=== PATIENT | male | born 1960 | race Caucasian/White ===

== ENCOUNTER 2020-05-15 13:22 | Emergency (ER) | payer OTHER, SELFPAY ==
[2020-05-15 13:26] VITALS: BP 141/80; PULSE 85; RESP 17; TEMP 36.7; O2SAT 98
[2020-05-15] MEDS: TETANUS,DIPHTHERIA,AC PERTUSSIS ADULT (0.5 ML) BOOSTRIX IM (15:00)
--- NOTE | 2020-05-15 15:17 | ED.WOUNDLAC ---
HPI - Wound/Laceration General Chief Complaint: Wound/Laceration Stated Complaint: head lac Time Seen by Provider: 05/15/20 13:59 Source: patient Mode of arrival: ambulatory Limitations: no limitations History of Present Illness HPI narrative: This is a 59-year-old male that presents the emergency department for head injury today. Reports he was outside and was standing up and hit his head on the AC unit. Reports a laceration to the head. Denies loss of consciousness. Is unsure of his last tetanus vaccine. Denies vision changes, vomiting, numbness or weakness. Related Data Home Medications Medication Instructions Recorded Confirmed aspirin 81 mg tablet,delayed 81 mg PO DAILY 05/13/20 release cholecalciferol (vitamin D3) 25 25 mcg PO DAILY 05/13/20 mcg (1,000 unit) capsule famotidine 40 mg tablet 40 mg PO DAILY 05/13/20 folic acid 1 mg tablet 1 mg PO DAILY 05/13/20 sulfamethoxazole 800 1 tablet PO .2Xweek tablet 05/13/20 mg-trimethoprim 160 mg tablet Allergies Allergy/AdvReac Type Severity Reaction Status Date / Time No Known Allergies Allergy Unknown Verified 05/15/20 13:28 Review of Systems Review of Systems: Narrative: CONSTITUTIONAL: Denies fever EYES: Denies visual changes GASTROINTESTINAL: Denies vomiting SKIN: Reports laceration NEUROLOGIC: Denies headache, numbness, or weakness. All systems reviewed & are unremarkable except as noted in HPI and below PMFSH Past Medical History Medical History (Updated 05/15/20 @ 15:22 by Aretha Jon PA-C) Diverticulosis large intestine w/o perforation or abscess w/bleeding HTN (hypertension) Knee pain Leukemia Family History Family History (Updated 07/15/18 @ 09:03 by DOCTOR UNKNOWN) Father Carcinoma of colon Social History Social History Smoking status: Former smoker Smoking end date: 11/25/16 Alcohol intake: current Exam Narrative: Exam Narrative: GENERAL: Well-appearing, well-nourished, and in no acute distress. HEAD: Normocephalic. 3 cm linear laceration into subcutaneous tissue over the left frontal scalp EYES: PERRLA and EOMI. ENT: Nares clear, no rhinorrhea or epistaxis. Mucous membranes moist. Oropharynx without tonsillar hypertrophy exudate or other lesions. Bilateral TMs pearly grey non-bulging NECK: Supple. No adenopathy or masses. No midline cervical spine tenderness CHEST: Clear to auscultation. No respiratory distress. No wheezes rales or rhonchi HEART: Regular rate and rhythm. No murmur heard. Normal peripheral pulses. EXTREMITIES: Normal range of motion. No edema. Strength equal in bilateral upper extremities SKIN: Warm, dry, no rash. NEURO: No focal deficits. Alert and oriented x3. Cranial nerves II through XII grossly intact PSYCH: Normal mood and affect Course Vital Signs Vital signs: Vital Signs Temperature 98.0 F 05/15/20 13:26 Pulse Rate 85 05/15/20 13:26 Respiratory Rate 17 05/15/20 13:26 Blood Pressure 141/80 H 05/15/20 13:26 Pulse Oximetry 98 05/15/20 13:26 Temperature 98.0 F 05/15/20 13:26 Pulse Rate 85 05/15/20 13:26 Respiratory Rate 17 05/15/20 13:26 Blood Pressure 141/80 H 05/15/20 13:26 Pulse Oximetry 98 05/15/20 13:26 Procedures Laceration Laceration 1: Date: 05/15/20 Time: 15:19 Site: other (head) Size (cm): 3 Description: linear Depth: simple, single layer Local Anesthetic: lidocaine 1% and with epi Amount of anesthesia used (mL): 2 Pre-repair: irrigated ====== Skin Level ====== Skin layer closed with: [email or web address] Number of sutures: 7 ====== Subcutaneous Layer ====== ====== Muscle Layer ====== ====== Tendon Layer ====== MDM - Wound/Laceration MDM Narrative Medical decision making narrative: Patient presents the emergency department for laceration to the scalp. Patient is neurologically intact. Vitals are stable. Patient was updated on tetan
== END 2020-05-15 15:31 | disposition home or self-care (01) ==
PROVIDERS: Emergency Provider Emergency Medicine; PCP Internal Medicine
DX: S01.01XA Laceration without foreign body of scalp, initial encounter (principal); Z23 Encounter for immunization; I10 Essential (primary) hypertension; Z87.891 Personal history of nicotine dependence; Z79.82 Long term (current) use of aspirin; Z85.6 Personal history of leukemia; W22.8XXA Striking against or struck by other objects, initial encounter
CPT/HCPCS: 12002; 90471; 90715; 99283

== ENCOUNTER 2021-06-20 11:00 | Outpatient (CLI) | payer OTHER, SELFPAY ==
--- NOTE | ~2021-06-20 | CT_ITS ---
EXAMINATION: CT lung screening DATE: 06/20/2021 11:28 INDICATION: Personal history of nicotine dependence, prior smoker with 40 pack year history TECHNIQUE: Computed tomography (CT) of the chest was performed without intravenous contrast. The dose -length product (DLP) was 96.45 mGy-cm. Automated exposure control and iterative reconstruction techn ique were employed. COMPARISON: None FINDINGS: There is mild emphysema. There is mild atelectasis of the lower lobes. No suspicious pulmon ramiro nodule is identified. There is no pleural effusion or pneumothorax. No pathologically enlarged th oracic lymph nodes are identified. The heart size is normal. There is mild thoracic spondylosis. IMPRESSION: 1. Lung-RADS category 1: Negative. Continue annual screening with noncontrast low-dose chest CT in 12 months. Reviewed, dictated and finalized at location A. IMPRESSION: 1. Lung-RADS category 1: Negative. Continue annual screening with noncontrast l ow-dose chest CT in 12 months.
== END 2021-06-20 11:01 | disposition home or self-care (01) ==
LOC: ANHIMG 11:04
PROVIDERS: PCP Internal Medicine; Visit Provider Nurse Practitioner
DX: Z12.2 Encounter for screening for malignant neoplasm of respiratory organs (principal); Z87.891 Personal history of nicotine dependence
CPT/HCPCS: 71271

== ENCOUNTER 2021-09-15 12:01 | Outpatient (CLI) | payer OTHER, SELFPAY ==
--- NOTE | ~2021-09-15 | US_ITS ---
EXAMINATION: US scrotum doppler DATE: 09/15/2021 13:45 INDICATION: Left testicular pain TECHNIQUE: Testicular sonogram utilizing grayscale and Doppler COMPARISON: None. FINDINGS: The right testis measures 4.8 x 2.2 x 3.5 cm. The left testis measures 4.4 x 1.8 x 4.2 cm. Symmetric grayscale appearance to both testes. There are a few small Nonmasslike regions of increased echogenicity without shadowing in the left testis which of doubtful clinical significance. There is normal vascular flow to both testes. The right epididymis is normal w ith normal vascular flow. The left epididymis is normal with normal vascular flow. There is no varico janice or hydrocele. Likely benign 6-7 mm simple appearing anechoic subdermal cyst at the left hemiscro johana. IMPRESSION: 1. Likely benign 6-7 mm simple appearing subdermal cyst at the left hemiscrotum superior to the test is. Otherwise unremarkable scrotal ultrasound. Reviewed, dictated and finalized at location A. IMPRESSION: 1. Likely benign 6-7 mm simple appearing subdermal cyst at the left hemiscrotu m superior to the testis. Otherwise unremarkable scrotal ultrasound.
== END 2021-09-15 12:02 | disposition home or self-care (01) ==
LOC: ANHIMG 12:04
PROVIDERS: PCP Internal Medicine; Visit Provider Nurse Practitioner
DX: N50.812 Left testicular pain (principal); L72.9 Follicular cyst of the skin and subcutaneous tissue, unspecified
CPT/HCPCS: 76870; 93976

== ENCOUNTER 2022-06-11 15:22 | Outpatient (CLI) | payer OTHER, SELFPAY ==
--- NOTE | ~2022-06-11 | CT_ITS ---
EXAMINATION:CT lung screening DATE: 06/11/2022 15:42 INDICATION: Tobacco use. Smoker who quit 4 years ago with 40 pack year history. TECHNIQUE: Computed tomography (CT) of the chest was performed without intravenous contrast. Automate d exposure control and iterative reconstruction technique were employed. The dose-length product (DLP ) was 108.44 mGy-cm. COMPARISON: Chest CT 06/20/2021 FINDINGS: There is mild atelectasis bilaterally. No pleural effusion. The heart size is normal. No pe ricardial effusion. There are coronary artery calcifications. There is mild thoracic spondylosis. IMPRESSION: 1. Lung-RADS category 1: Negative. Continue annual screening with noncontrast low-dose chest CT in 12 months. Reviewed, dictated and finalized at location A. IMPRESSION: 1. Lung-RADS category 1: Negative. Continue annual screening with noncontrast l ow-dose chest CT in 12 months.
== END 2022-06-11 15:23 | disposition home or self-care (01) ==
PROVIDERS: PCP Internal Medicine; Visit Provider Clinical Nurse Specialist
DX: Z12.2 Encounter for screening for malignant neoplasm of respiratory organs (principal); Z87.891 Personal history of nicotine dependence
CPT/HCPCS: 71271

== ENCOUNTER 2022-06-26 08:03 | Outpatient (CLI) | payer OTHER, SELFPAY ==
[2022-06-26 10:32] LABS: Basophils Percent Auto 0.3 % (0.2-1.2); Eosinophils Absolute Auto 0.1 K/mm3 (0-0.3); Hematocrit 49.2 % (42.0-52.0); Hemoglobin 16.8 g/dL (14.0-18.0); Immature Granulocyte Absolute 0.02 K/mm3 (0.00-0.031); Immature Granulocyte Percent A 0.3 % (0-0.5); Lymphocytes Percent Auto 11.3 % (18.3-44.2); Mean Corpuscular HGB Conc 34.1 g/dl (32-36); Mean Corpuscular Hemoglobin 31.1 pg (26-34); Mean Corpuscular Volume 91.1 fl (80-100); Mean Platelet Volume 10.2 fl (7.4-10.4); Monocytes Absolute Auto 0.5 K/mm3 (0.1-0.6); Monocytes Percent Auto 7.3 % (2.6-8.5); Neutrophils Absolute Auto 4.9 K/mm3 (1.3-6.7); Neutrophils Percent Auto 79.8 % (45.5-73.1); Platelet Count Result 193 k/mm3 (150-375); White Blood Count 6.2 K/mm3 (4.5-10.0)
[2022-06-26 12:30] LABS: Vitamin D 25 Hydroxy 54.9 ng/mL
[2022-06-26 14:44] LABS: Alanine Aminotransferase 23 U/L (6-50); Albumin Level 4.3 g/dL (3.5-5.1); Alkaline Phosphatase 87 U/L (38-126); Anion Gap 8 mmol/L (8-16); Aspartate Amino Transferase 31 U/L (17-59); Bilirubin,Total 1.1 mg/dL (0.2-1.3); Blood Urea Nitrogen 13 mg/dL (9-20); Calcium 9.6 mg/dL (8.4-10.2); Carbon Dioxide 31 mmol/L (22-30); Chloride 99 mmol/L (98-107); Cholesterol 164 mg/dL (0-200); Estimated Glomerular Filt Rate > 60; Glucose 96 mg/dL (65-110); HDL Direct 42 mg/dL; Sodium 138 mmol/L (137-145); Triglycerides 115 mg/dL (<150)
[2022-06-26 14:58] LABS: LDL Cholesterol Direct 84 mg/dL
[2022-06-26 15:17] LABS: Prostate Specific Antigen 2.5 ng/mL (< OR = 4.0)
== END 2022-06-26 08:04 | disposition home or self-care (01) ==
PROVIDERS: PCP Internal Medicine; Visit Provider Clinical Nurse Specialist
DX: E55.9 Vitamin D deficiency, unspecified (principal); Z12.5 Encounter for screening for malignant neoplasm of prostate; I10 Essential (primary) hypertension
CPT/HCPCS: 36415; 80053; 80061; 82306; 84153; 85025; G0103

== ENCOUNTER 2022-08-29 10:26 | Outpatient (CLI) | payer OTHER, SELFPAY ==
--- NOTE | ~2022-08-29 | CT_ITS ---
EXAMINATION: CT abdomen pelvis w con DATE: 08/29/2022 11:12 INDICATION: Left lower quadrant pain. Left groin pain. TECHNIQUE: Computed tomography (CT) of the abdomen and pelvis was performed with 100 cc Omnipaque 350 intravenous contrast. The dose-length product was 429.33 mGy-cm. Automated exposure control and iter ative reconstruction technique were employed. COMPARISON: CT dated 11/29/2010 FINDINGS: There is dependent atelectasis. Heart size normal. No significant pleural or pericardial ef fusion. No significant vascular abnormality. No evidence for aneurysm. No lymphadenopathy. Fatty infiltration of the liver. Gallbladder is present. The spleen, pancreas, adrenal glands and kid neys are unremarkable. No free air. There is acute proximal sigmoid diverticulitis without evidence f or abscess. No obstruction. Normal appendix. Mild lumbar spondylosis. IMPRESSION: 1. Acute uncomplicated proximal sigmoid diverticulitis. Reviewed, dictated and finalized at location B.
[2022-08-29 11:02] LABS: Estimated Glomerular Filt Rate > 60
== END 2022-08-29 10:27 | disposition home or self-care (01) ==
PROVIDERS: PCP Internal Medicine; Visit Provider Clinical Nurse Specialist
DX: R19.00 Intra-abdominal and pelvic swelling, mass and lump, unspecified site (principal); R10.32 Left lower quadrant pain; K57.92 Diverticulitis of intestine, part unspecified, without perforation or abscess without bleeding
CPT/HCPCS: 74177; Q9967

== ENCOUNTER → 2022-09-13 12:00 | Outpatient (CLI) | payer OTHER, SELFPAY ==
--- NOTE | ~2022-09-13 | XR_ITS ---
EXAMINATION: XR knee RT 3V DATE: 09/13/2022 12:13 INDICATION: Right knee pain and swelling TECHNIQUE: Three views of the right knee were obtained. COMPARISON: 11/30/2014 FINDINGS: Alignment is normal. No fracture or osteochondral lesion. There is moderate joint space beto rowing in the lateral compartment. There is mild osteoarthritis of the medial and patellofemoral comp artment. Advanced osteoarthritis is noted at the tibiofibular articulation. There is a small knee justine nt effusion. IMPRESSION: 1. 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 Reviewed, dictated and finalized at location B. IMPRESSION: 1. Tricompartmental osteoarthritis with interval worsening in the lateral christy rtment and advanced degenerative change at the tibiofibular articulation.
== END ==
PROVIDERS: PCP Clinical Nurse Specialist; Visit Provider Clinical Nurse Specialist
DX: M25.561 Pain in right knee (principal); M17.11 Unilateral primary osteoarthritis, right knee
CPT/HCPCS: 73562

== ENCOUNTER 2022-11-22 00:56 | Day surgery (SDC) | payer OTHER, SELFPAY ==
[2022-11-12 11:09] VITALS: BMI 24.2
--- NOTE | 2022-11-21 14:27 | PM.HPGS ---
History of Present Illness History of Present Illness Consent: Risks, benefits, and alternatives have been discussed and questions answered. Patient agrees to proceed with procedure. Chief complaint: Diverticulitis Narrative: Wesley Santamaria is a 61 year old male Who states that for the past 6-8 months he has been dealing with left lower quadrant pain.? States pain is constant and tender to the touch. ? Approximately 2-3 months ago states he was leaving work and left lower quadrant pain was severely intense and worsen with trying to have a bowel movement. ? Does report mild intermittent bleeding however he relates this to hemorrhoids.? States when symptoms did not improve the next day he followed up with PCP.? CT scan showed acute uncomplicated proximal sigmoid diverticulitis. He was started on antibiotics with improvement in left lower abdominal pain. He denies any pain with BM.? He continues to have some left lower quadrant pain but states it is back to baseline. Review of Systems Review of Systems: All systems reviewed & are unremarkable except as noted in HPI and below PMFSH Past Medical History Medical History Abdominal pain Diverticulosis large intestine w/o perforation or abscess w/bleeding HTN (hypertension) Knee pain Leukemia Wears glasses Surgical History Surgical History History of knee surgery 1979 Family History Family History Father Carcinoma of colon Other Leukemia Lymphoma Skin cancer Social History Social History Social History: Caffeine daily(tea) Smoking packs per day: 1 Smoking cigarettes per day: 20.0 Years smoked: 35 Smoking pack-years: 35.00 Smoking status: Former smoker Tobacco type: cigarettes Smoking end date: 11/25/17 Alcohol intake: current Drinks per week: 10 Alcohol use details: 1-2 glasses of wine daily Substance use: current Substance use type: marijuana Other substance usage details: EDIBLE TO SLEEP Living arrangements: with family Occupation/Education: occupation Gender identity (if verbalized by the patient): Male Spiritual care concerns: No Meds Home Medications and Allergies Home Medications Medication Instructions Recorded Confirmed Type aspirin 81 mg tablet,delayed 81 mg PO DAILY 05/13/20 11/12/22 History release (Adult Low Dose Aspirin) famotidine 40 mg tablet 40 mg PO DAILY 05/13/20 11/12/22 History folic acid 1 mg tablet 1 mg PO DAILY 05/13/20 11/12/22 History cholecalciferol (vitamin D3) 50 50 mcg PO DAILY 10/12/21 11/12/22 History mcg (2,000 unit) capsule tamsulosin 0.4 mg capsule See Rx Instructions .Route 08/13/22 11/12/22 Rx .COMPLEX #90 caps multivitamin 1 tablet PO DAILY 08/29/22 11/12/22 History doxycycline hyclate 20 mg tablet 50 mg PO Q12H 09/20/22 11/12/22 History azelastine 0.05 % eye drops See Rx Instructions .Route 09/24/22 11/12/22 Rx .COMPLEX #6 mL tadalafil 20 mg tablet See Rx Instructions .Route 11/08/22 11/12/22 Rx .COMPLEX #18 tabs Allergies Allergy/AdvReac Type Severity Reaction Status Date / Time No Known Allergies Allergy Unknown Verified 11/22/22 06:38 Exam Const: General: alert Orientation/consciousness: patient oriented x3 Resp: Auscultation: clear to auscultation bilaterally Cardio: Rhythm: regular rhythm GI: GI Palp: Yes Soft to palpation, Yes Tenderness to palpation present (GI) (Left lower quadrant) and No Guarding due to palpation present (GI) Neuro: General: patient oriented x3 Assessment and Plan Assessment and plan (1) Diverticulitis: Code(s): K57.92 - Diverticulitis of intestine, part unspecified, without perforation or abscess without bleeding Status: Acute Assessment and Plan: Colonoscopy with possible biopsy
[2022-11-22 06:39] VITALS: BP 137/88; PULSE 78; RESP 18; TEMP 36.3; O2SAT 99
[2022-11-22] MEDS: LACTATED RINGERS 1,000 ML 150 ML IV CONT (06:46)
--- NOTE | 2022-11-22 07:53 | WPDANESEPPF ---
Anes - Initial Pre Proc Eval Procedure: Operation Date: 11/22/22 08:00 Proposed Procedures p Colonoscopy - Rashel Momin MD Date/Time: 11/22/22 07:53 Surgeon: Rashel Momin MD Pre Op Diagnosis: Diverticulitis Patient Data Age: 61 Gender: M Height: 1.83 m Weight: 81.5 kg Last Vital Signs Temp 97.4 F L 11/22/22 06:39 Pulse 78 11/22/22 06:39 Resp 18 11/22/22 06:39 BP 137/88 11/22/22 06:39 Pulse Ox 99 11/22/22 06:39 O2 Del Method Room Air 11/22/22 06:39 Allergies Allergy/AdvReac Type Severity Reaction Status Date / Time No Known Allergies Allergy Unknown Verified 11/22/22 06:38 Home Medications Medication Instructions Recorded Confirmed Type aspirin 81 mg tablet,delayed 81 mg PO DAILY 05/13/20 11/12/22 History release (Adult Low Dose Aspirin) famotidine 40 mg tablet 40 mg PO DAILY 05/13/20 11/12/22 History folic acid 1 mg tablet 1 mg PO DAILY 05/13/20 11/12/22 History cholecalciferol (vitamin D3) 50 50 mcg PO DAILY 10/12/21 11/12/22 History mcg (2,000 unit) capsule tamsulosin 0.4 mg capsule See Rx Instructions .Route 08/13/22 11/12/22 Rx .COMPLEX #90 caps multivitamin 1 tablet PO DAILY 08/29/22 11/12/22 History doxycycline hyclate 20 mg tablet 50 mg PO Q12H 09/20/22 11/12/22 History azelastine 0.05 % eye drops See Rx Instructions .Route 09/24/22 11/12/22 Rx .COMPLEX #6 mL tadalafil 20 mg tablet See Rx Instructions .Route 11/08/22 11/12/22 Rx .COMPLEX #18 tabs Patient hx anesthesia problems: none Family hx anesthesia problems: none Results Review: All pre-operative results and documents have been reviewed as part of the pre-operative evaluation. [facility] Past Medical History Medical History Abdominal pain Diverticulosis large intestine w/o perforation or abscess w/bleeding HTN (hypertension) Knee pain Leukemia Wears glasses Surgical History Surgical History History of knee surgery 1979 Family History Family History Father Carcinoma of colon Other Leukemia Lymphoma Skin cancer Social History Social History Social History: Caffeine daily(tea) Smoking packs per day: 1 Smoking cigarettes per day: 20.0 Years smoked: 35 Smoking pack-years: 35.00 Smoking status: Former smoker Tobacco type: cigarettes Smoking end date: 11/25/17 Alcohol intake: current Drinks per week: 10 Alcohol use details: 1-2 glasses of wine daily Substance use: current Substance use type: marijuana Other substance usage details: EDIBLE TO SLEEP Living arrangements: with family Occupation/Education: occupation Gender identity (if verbalized by the patient): Male Spiritual care concerns: No Anes - Eval Final PreProcedure Day of Procedure 11/22/22 07:53 Patient weight: normal Heart: regular rate and rhythm Lungs: clear to auscultation Airway: Mallampati scale class II Neurological: alert and oriented Last oral intake: >/= 8 hours ASA classification: II Emergent: no Anesthetic plan: proceed Anesthesia type and monitoring: general GIVS and standard monitoring Results Review: All pre-operative results and documents have been reviewed as part of the pre-operative evaluation. Informed Consent: The patient's anesthetic plan and its attendant risks and benefits were discussed with the patient/family/POA. Questions were solicited and answers provided to the satisfaction of the patient/family/POA.
[2022-11-22 08:09] VITALS: BP 110/78; PULSE 71; RESP 19; O2SAT 95
[2022-11-22 08:19] VITALS: BP 111/77; PULSE 70; RESP 16; O2SAT 95
[2022-11-22 08:29] VITALS: BP 125/66; PULSE 73; RESP 25; O2SAT 97
[2022-11-22 08:58] LABS: CRP 0.7 mg/dL (<1.0)
[2022-11-22 09:11] LABS: Procalcitonin 0.1 ng/mL
== END 2022-11-22 08:39 | disposition home or self-care (01) ==
PROVIDERS: PCP Clinical Nurse Specialist; Visit Provider Internal Medicine Gastroenterology
PROC: 0DJD8ZZ Inspection of Lower Intestinal Tract, Via Natural or Artificial Opening Endoscopic (ICD-10-PCS; CPT 45378; principal; 2022-11-22 08:00)
DX: Z09 Encounter for follow-up examination after completed treatment for conditions other than malignant neoplasm (principal); K57.30 Diverticulosis of large intestine without perforation or abscess without bleeding; K64.8 Other hemorrhoids; Z87.19 Personal history of other diseases of the digestive system; I10 Essential (primary) hypertension; Z79.82 Long term (current) use of aspirin; Z85.6 Personal history of leukemia; Z87.891 Personal history of nicotine dependence; F12.90 Cannabis use, unspecified, uncomplicated
CPT/HCPCS: 45378; 36415; 84145; 86140; J2704; J7120

== ENCOUNTER 2023-11-27 14:54 | Outpatient (CLI) | payer OTHER, SELFPAY ==
[2023-11-27 20:26] LABS: Influenza A QL RT-PCR Negative (Negative); Influenza B QL RT-PCR Negative (Negative); RSV RNA, RT-PCR Positive (Negative); SARS-CoV-2 RNA PCR Negative (Negative)
== END 2023-11-27 14:55 | disposition home or self-care (01) ==
PROVIDERS: PCP Internal Medicine; Visit Provider Clinical Nurse Specialist
DX: R05.9 Cough, unspecified (principal); Z20.822 Contact with and (suspected) exposure to COVID-19
CPT/HCPCS: 87637

== ENCOUNTER → 2023-11-27 15:11 | Outpatient (CLI) | payer OTHER, SELFPAY ==
--- NOTE | ~2023-11-27 | XR_ITS ---
EXAMINATION: XR chest 2V DATE: 11/27/2023 15:20 INDICATION: Unspecified cough TECHNIQUE: PA and lateral views of the chest were obtained. COMPARISON: Chest radiograph dated 06/11/2022 FINDINGS: The lungs are clear with no focal airspace opacities, pulmonary edema, pleural effusion or pneumothor ax. The cardiomediastinal silhouette is normal. Visualized bones and soft tissues are unremarkable. IMPRESSION: 1. No acute cardiopulmonary disease. Reviewed, dictated and finalized at location A. NUE CYCLE MANAGER
== END ==
PROVIDERS: PCP Internal Medicine; Visit Provider Clinical Nurse Specialist
DX: R05.9 Cough, unspecified (principal)
CPT/HCPCS: 71046

== ENCOUNTER 2024-01-15 09:55 | Outpatient (CLI) | payer OTHER, SELFPAY ==
--- NOTE | ~2024-01-15 | CT_ITS ---
CT of the Abdomen and Pelvis: Indication: Diverticulitis Technique: 2.5 mm axial scans were obtained through the abdomen and pelvis following intravenous adm inistration of 100 cc of Omnipaque 350. Dose reduction technique was used on this scan by utilizing a utomated exposure control and iterative reconstruction technique. The dose-length product (DLP) was 4 79.59 mGy-cm. COMPARISON: 08/29/2022 Findings: Scans through the lung bases are unremarkable. The liver, spleen, pancreas, gallbladder, adrenals and kidneys are within normal limits. No evidence of aortic aneurysm. No lymphadenopathy. No bowel obstruction or bowel wall thickening. There is no evidence to suggest acute appendicitis. Images through the pelvis were performed. Urinary bladder unremarkable. No pelvic mass seen. No ascit es. Impression: No significant abnormalities seen. Reviewed, dictated and finalized at [facility]. GEMENT COORDINATOR Impression: No significant abnormalities seen.
[2024-01-15 10:20] LABS: Estimated Glomerular Filt Rate > 60
== END 2024-01-15 09:56 | disposition home or self-care (01) ==
PROVIDERS: PCP Clinical Nurse Specialist; Visit Provider Nurse Practitioner Family
DX: R10.9 Unspecified abdominal pain (principal)
CPT/HCPCS: 74177; Q9967

== ENCOUNTER 2024-03-19 08:00 | Outpatient (CLI) | payer OTHER, SELFPAY ==
[2024-03-19 12:45] LABS: Basophils Percent Auto 0.3 % (0.2-1.2); Eosinophils Absolute Auto 0.2 K/mm3 (0-0.3); Eosinophils Percent Auto 2.7 % (0-4.4); Hematocrit 53.1 % (42.0-52.0); Hemoglobin 17.5 g/dL (14.0-18.0); Immature Granulocyte Absolute 0.02 K/mm3 (0.00-0.031); Immature Granulocyte Percent A 0.3 % (0-0.5); Lymphocytes Absolute Auto 0.82 K/mm3 (0.9-3.2); Lymphocytes Percent Auto 13.6 % (18.3-44.2); Mean Corpuscular Hemoglobin 30.5 pg (26-34); Mean Corpuscular Volume 92.7 fl (80-100); Mean Platelet Volume 10.4 fl (7.4-10.4); Monocytes Absolute Auto 0.6 K/mm3 (0.1-0.6); Monocytes Percent Auto 9.3 % (2.6-8.5); Neutrophils Absolute Auto 4.5 K/mm3 (1.3-6.7); Neutrophils Percent Auto 73.8 % (45.5-73.1); Platelet Count Result 164 k/mm3 (150-375); Red Blood Count 5.73 M/mm3 (4.6-6.20); Red Cell Distribution Width 13.2 % (11.5-14.5)
[2024-03-19 14:21] LABS: Alanine Aminotransferase 71 U/L (6-50); Albumin Level 4.4 g/dL (3.5-5.1); Alkaline Phosphatase 108 U/L (38-126); Anion Gap 6 mmol/L (4-12); Aspartate Amino Transferase 61 U/L (17-59); Bilirubin,Total 1.4 mg/dL (0.2-1.3); Blood Urea Nitrogen 14 mg/dL (9-20); Calcium 9.5 mg/dL (8.4-10.2); Carbon Dioxide 27 mmol/L (22-30); Chloride 104 mmol/L (98-107); Cholesterol 194 mg/dL (0-200); Estimated Glomerular Filt Rate > 60; Glucose 92 mg/dL (65-110); HDL Direct 61 mg/dL; Sodium 137 mmol/L (137-145); Triglycerides 85 mg/dL (<150)
[2024-03-19 14:32] LABS: LDL Cholesterol Direct 106 mg/dL
[2024-03-19 14:46] LABS: Prostate Specific Antigen 2.4 ng/mL (< OR = 4.0)
== END 2024-03-19 08:01 | disposition home or self-care (01) ==
LOC: ANHGOSHLAB 08:01
PROVIDERS: PCP Clinical Nurse Specialist; Visit Provider Clinical Nurse Specialist
DX: I10 Essential (primary) hypertension (principal); N40.0 Benign prostatic hyperplasia without lower urinary tract symptoms; Z12.5 Encounter for screening for malignant neoplasm of prostate; Z13.220 Encounter for screening for lipoid disorders; Z13.29 Encounter for screening for other suspected endocrine disorder
CPT/HCPCS: 36415; 80053; 80061; 84153; 85025; G0103

== ENCOUNTER 2024-08-18 07:39 | Emergency (ER) | payer OTHER, SELFPAY ==
--- NOTE | 2024-08-18 08:28 | ED.GENADULT ---
HPI - General Adult General Chief complaint: Animal Bite Stated complaint: cat bite Time Seen by Provider: 08/18/24 07:59 History of Present Illness HPI narrative: This is a 63-year-old male presenting after a cat bite. He found an old me [place] CT in the backyard they try to feed it. When he was trying to pet it it bit him on thumb. He later found out that it was his neighbor's cat is an indoor outdoor cat. The cat was not discrete displaying any aggressive behavior and later came back and was not lying up against his leg. Patient was sent in by his primary care physician for possible rabies vaccination Related Data Home Medications Medication Instructions Recorded Confirmed aspirin 81 mg tablet,delayed 81 mg PO DAILY 05/13/20 08/17/24 release (Adult Low Dose Aspirin) famotidine 40 mg tablet 40 mg PO DAILY 05/13/20 08/17/24 folic acid 1 mg tablet 1 mg PO DAILY 05/13/20 08/17/24 cholecalciferol (vitamin D3) 50 50 mcg PO DAILY 10/12/21 08/17/24 mcg (2,000 unit) capsule multivitamin 1 tablet PO DAILY 08/29/22 08/17/24 ofloxacin 0.3 % eye drops 1 drp EACH EYE ONCE 03/10/24 08/17/24 Allergies Allergy/AdvReac Type Severity Reaction Status Date / Time No Known Allergies Allergy Unknown Verified 08/18/24 07:41 [facility] Past Medical History Medical History Abdominal pain Abdominal wall mass of left flank Diverticulosis large intestine w/o perforation or abscess w/bleeding Former smoker HTN (hypertension) Knee pain Left groin pain Left lower quadrant pain Leukemia Localized swelling, mass and lump, unspecified Screening for endocrine disorder Screening for lipid disorders Screening PSA (prostate specific antigen) Testicular pain, left Vitamin D deficiency Wears glasses Surgical History Surgical History History of knee surgery 1979 Family History Family History Father Carcinoma of colon Other Leukemia Lymphoma Skin cancer Social History Social History Social History: Caffeine daily(tea) Smoking packs per day: 1 Smoking cigarettes per day: 20.0 Years smoked: 35 Smoking pack-years: 35.00 Smoking status: Former smoker Tobacco type: cigarettes Smoking end date: 11/25/17 Alcohol intake: current Drinks per week: 10 Alcohol use details: 1-2 glasses of wine daily Substance use: current Substance use type: marijuana Other substance usage details: EDIBLE TO SLEEP Living arrangements: with family Occupation/Education: occupation Gender identity (if verbalized by the patient): Male Spiritual care concerns: No Exam Narrative: APPEARANCE: No apparent distress. Head: atraumatic. EYES: EOMI, NOSE: Atraumatic NECK: Trachea midline RESPIRATORY: No increased rate of breathing CARDIOVASCULAR: RRR, ABDOMINAL: Non-distended MUSCULOSKELETAl: Small puncture at the base of the thumb without signs of infection. Hand is neurovascularly intact. NEURO: Alert. Moving 4/4 extremities SKIN:: Warm, dry. Normal color PSYCHIATRIC: Normal affect Medical Decision Making MDM Narrative Medical decision making narrative: -Course: 63-year-old male presenting a cat bite. Concerned about rabies. It is his neighbor's cat. The cat was not displaying any erratic or aggressive behavior. No indication for rabies prophylaxis. Patient will be discharged. He is already on Augmentin has received a tetanus shot. -Shared decision making / Disposition: Discharged Discharge Plan Discharge Clinical Impression: Cat bite Patient Disposition: Home, Self-Care Condition: Stable Instructions: Antibiotic Form, Animal Bite (ED) Additional Instructions: Please follow-up with your primary care physician. If you develops signs of infection in your hand please return t
[2024-08-18 08:40] VITALS: BP 138/97; PULSE 91; RESP 18; TEMP 36.6; O2SAT 96
== END 2024-08-18 08:42 | disposition home or self-care (01) ==
PROVIDERS: Emergency Provider Emergency Medicine; PCP Clinical Nurse Specialist
DX: S61.059A Open bite of unspecified thumb without damage to nail, initial encounter (principal); W55.01XA Bitten by cat, initial encounter; Z87.891 Personal history of nicotine dependence; K57.90 Diverticulosis of intestine, part unspecified, without perforation or abscess without bleeding; I10 Essential (primary) hypertension
CPT/HCPCS: 99281

== ENCOUNTER 2024-12-15 09:08 | Outpatient (CLI) | payer OTHER, SELFPAY ==
--- NOTE | ~2024-12-15 | XR_ITS ---
EXAMINATION: XR lumbar spine 2-3V DATE: 12/15/2024 09:25 INDICATION: Low back pain, unspecified. TECHNIQUE: 3 views of lumbar spine including standing views were obtained. COMPARISON: Lumbar spine radiographs 03/24/2013, CT abdomen and pelvis 01/15/2024 FINDINGS: There is 7 degrees levocurvature of thoracolumbar spine. Vertebral body heights are normal. There is mildly decreased disc height at L1-L2. There are endplate osteophytes at all levels. There is multilevel mild facet joint osteoarthritis. IMPRESSION: 1. Mild lumbar spondylosis. Reviewed, dictated and finalized at location B. RTRICHOLOGIST IMPRESSION: 1. Mild lumbar spondylosis.
== END 2024-12-15 09:09 | disposition home or self-care (01) ==
LOC: GOSHIMG 09:08
PROVIDERS: PCP Nurse Practitioner; Visit Provider Nurse Practitioner
DX: M47.816 Spondylosis without myelopathy or radiculopathy, lumbar region (principal)
CPT/HCPCS: 72100

== ENCOUNTER 2025-05-14 09:27 | Outpatient (CLI) | payer OTHER, SELFPAY ==
[2025-05-14 18:33] LABS: Basophils Percent Auto 0.3 % (0.2-1.2); Eosinophils Absolute Auto 0.1 K/mm3 (0-0.3); Eosinophils Percent Auto 0.6 % (0-4.4); Hemoglobin 16.5 g/dL (14.0-18.0); Immature Granulocyte Absolute 0.04 K/mm3 (0.00-0.031); Immature Granulocyte Percent A 0.4 % (0-0.5); Lymphocytes Absolute Auto 0.57 K/mm3 (0.9-3.2); Lymphocytes Percent Auto 5.9 % (18.3-44.2); Mean Corpuscular HGB Conc 33.7 g/dl (32-36); Mean Corpuscular Hemoglobin 30.7 pg (26-34); Mean Corpuscular Volume 91.2 fl (80-100); Mean Platelet Volume 10.4 fl (7.4-10.4); Monocytes Absolute Auto 0.7 K/mm3 (0.1-0.6); Monocytes Percent Auto 6.8 % (2.6-8.5); Neutrophils Absolute Auto 8.3 K/mm3 (1.3-6.7); Platelet Count Result 169 k/mm3 (150-375); Red Blood Count 5.37 M/mm3 (4.6-6.20); Red Cell Distribution Width 13.1 % (11.5-14.5); White Blood Count 9.6 K/mm3 (4.5-10.0)
[2025-05-14 18:39] LABS: Alanine Aminotransferase 29 U/L (6-50); Albumin Level 4.2 g/dL (3.5-5.1); Alkaline Phosphatase 113 U/L (38-126); Anion Gap 5 mmol/L (4-12); Aspartate Amino Transferase 39 U/L (17-59); Bilirubin Indirect 0.9 mg/dL (0-1.1); Blood Urea Nitrogen 14 mg/dL (9-20); Calcium 9.5 mg/dL (8.4-10.2); Carbon Dioxide 30 mmol/L (22-30); Chloride 103 mmol/L (98-107); Cholesterol 195 mg/dL (0-200); Estimated Glomerular Filt Rate > 60; Glucose 99 mg/dL (65-110); HDL Direct 66 mg/dL; Potassium 4.8 mmol/L (3.4-5.0); Sodium 138 mmol/L (137-145); Triglycerides 86 mg/dL (<150)
[2025-05-14 18:50] LABS: LDL Cholesterol Direct 90 mg/dL
[2025-05-14 22:09] LABS: Prostate Specific Antigen 3.3 ng/mL (< OR = 4.0)
== END 2025-05-14 09:28 | disposition home or self-care (01) ==
LOC: ANHGOSHLAB 09:27
PROVIDERS: PCP Nurse Practitioner; Visit Provider Clinical Nurse Specialist
DX: Z12.5 Encounter for screening for malignant neoplasm of prostate (principal); Z13.228 Encounter for screening for other metabolic disorders; R74.01 Elevation of levels of liver transaminase levels; C95.91 Leukemia, unspecified, in remission; I10 Essential (primary) hypertension
CPT/HCPCS: 36415; 80053; 80061; 82248; 84153; 84443; 85025; G0103

== ENCOUNTER 2025-06-15 08:13 | Outpatient (CLI) | payer OTHER, SELFPAY ==
--- OUTSIDE RECORDS SUMMARY | 2025-06-15 08:16 | XMS_ITS ---
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 Other Current Plans PNEUMOCOCCAL CONJUGATE VACCINE 13- VALENT IM (PREVNAR-13)* Plan Start Date: 10/13/2021 Plan Provider:Mikayla Billy MD Linked Problems Need for vaccination against Streptococcus pneumoniae using pneumococcal conjugate vaccine 13 Treatment Medications No medications scheduled. Past Treatment and Therapy Plans Specialty Infusion Treatment 2 Plan Name Start Date Discontinue Date Treatment Medications Discontinue Reason Plan Provider Evusheld 300 mg/300 mg Standard Dose 02/02/2022 03/15/2022 No medications scheduled. Therapy Complete Mikayla Billy MD
--- OUTSIDE RECORDS SUMMARY | 2025-06-15 08:16 | XMS_ITS | Clinical Summary ---
Author Organization [facility] Address [address] [place] [address] Care Team Providers Care Rag Room Supervisor Name Role Phone Mikayla Billy MD Unavailable [phone] Kenya Yung NP Primary Care Provider Allergies Active Allergy Reactions Criticality Noted Date Comments Azithromycin (Bulk) Rash Medium 06/04/2011 Medications tadalafiL (CIALIS) 20 mg tabletIndicatio ns:Hairy cell leukemia, in remission (HCC) 1 tab/ week Ac tive ibuprofen (ADVIL,MOTRIN) 200 mg tab/capIndicati ons:Hairy cell leukemia, in remission (HCC) p.r.n. Acti ve multivitamin tabletIndicatio ns:Vitamin Deficiency Prevention daily. Active ergocalciferol, vitamin D2, (VITAMIN D2 ORAL)Indication s:Hairy cell leukemia, in remission (HCC) 1 Active aspirin 81 MG oral suspension 1 Active tamsulosin (FLOMAX) 0.4 mg extended release capsuleIndicati ons:Hairy cell leukemia, in remission (HCC) 2 Active folic acid (FOLVITE) 1 mg tabletIndicatio ns:Hairy cell leukemia, in remission (HCC) Take 1 tablet (1,000 mcg total) by mouth daily 90 tablet 3 4 Active neomycin-polymy dimitri-dexAMETHaso ne (MAXITROL) 3.5mg/mL-10,000 unit/mL-0.1 % ophthalmic suspension SHAKE LIQUID AND INSTILL 1 DROP IN LEFT EYE FOUR TIMES DAILY FOR 5 DAYS 4 Active omeprazole (PriLOSEC) 10 mg capsule Take 1 capsule (10 mg total) by mouth as needed Active famotidine (PEPCID) 40 mg tablet TAKE 1 TABLET DAILY 90 tablet 3 4 Active cephalexin (KEFLEX) 500 mg capsuleIndicati ons:Cellulitis of left buttock Take 1 capsule (500 mg total) by mouth 4 (four) times a day for 7 days 28 capsule 5 05/21/20 25 methylPREDNISol one (MEDROL DOSEPACK) 4 mg DosepackIndicat ions:Cellulitis of left buttock Take as directed on package. 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 Encounters Date Type Department Care Team Description 05/20/2025 Orders Only [facility] Oncology [address] [place] [phone] ProviderAngel MD 05/14/2025 3:15 PM CDT Office Visit [facility] at [address] [phone] Alysia Arenas, GAYLE Cellulitis of left buttock (Primary Dx) from Last 3 Months Immunizations Immunization Administration Dates Next Due Influenza, Quadrivalent, Marina l Culture-based MDCK, Preservative Free, Antibiotic Free, Intramuscular 09/19/2020,09/11/2019 Influenza, Unspecified 09/05/2021 Mickey (J&J) SARS-CoV-2 Vaccination 02/13/2021 Moderna SARS-CoV-2 Monovalent Vaccination (12+ Y RS) 09/22/2021 Pneumococcal Conjugate PCV 13 10/13/2021 ZOSTER Recombinant 12/14/2019,09/11/2019 Surgical History Surgery Date Site/Laterality Comments 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 1 or 2 Q3: How often do you have si x or more drinks on one occasion? Daily or almost daily 10/04/2023 Sex and Gender Information Value Date Recorded Sex Assigned at Not on file Legal Sex Male 8:01 PM MANAGER OF PROJECT MANAGEMENT Gender Identity Male 11/09/2020 1:13 PM MANAGER OF PROJECT MANAGEMENT Sexual Orientation Straight 11/09/2020 1: 13 PM MANAGER OF PROJECT MANAGEMENT Obstetrics History Last Filed Vital Signs Vital Sign Reading Time Taken Comments Blood Pressure 144/93 05/14/2025 2:23 PM CDT Pulse 77 05/14/2025 2:23 PM CDT Temperature 36.5 C (97.7 F) 05/14/2025 2:23 PM CDT Respiratory Rate 20 05/14/2025 2:23 PM CDT Oxygen Saturation 97% 05/14/2025 2:23 PM CDT Inhaled Oxygen Concentration - - Weight 87.5 kg (193 lb) 05/14/2025 2:23 PM CDT Height 185.4 cm (6' 1) 03/19/2024 12:04 PM CDT Body Mass Index 25.46 03/19/2024 12:04 PM CDT Plan of Treatment Health Maintenance Due Date Last Done Comments Colon Cancer Screening-Colonoscopy 1958 Depression Screening 1958 Fall Risk Assessment 1958 Hepatitis C Screening 1960 Prostate Cancer Screening-PSA 1958 DTaP/Tdap/Td Vaccine (1 - Tdap) 1969 Hepatitis B Screening 1976 Pneumococcal vaccine 65+ (2 of 2 - PPSV23) 12/08/2021 10/13/2021 Well Visit 65+ 2023 Covid-19 Vaccine ( season) 2024, 02/13/2021 Influenza Vaccine (#1) 2025 , 09/19/2020, 09/11/2019 Zoster Vaccine Completed 12/14/2019, 09/11/2019 Abdominal Aortic Aneurysm (A AA) Screen Completed 01/15/2024, 11/30/2013, 12/01/2012 Procedures Procedure Name Priority Date/Time Associated Diagnosis Comments CBC WITH AUTO DIFFERENTIAL Routine 05/14/2025 9:[address] ABDOMEN PELVIS W CONTRAST Schedule Routine, Read Routine (OP Routine) 01/15/2024 9:59 AM MANAGER OF PROJECT MANAGEMENT from Last 3 Months or Most Recently Relevant to Health Maintenance Results * CBC with auto differential (05/14/2025 9:12 AM CDT) Blood Historical Provider LAB BLOOD ORDERABLES Katiuska l Result EXTERNAL LAB * CT Abdomen Pelvis W Contrast (01/15/2024 9:59 AM MANAGER OF PROJECT MANAGEMENT) Anatomical Region Laterality Modality Body N/A Computed Tomogra phy Historical Provider IMG CT PROCEDURES Final R esult from Last 3 Months or Most Recently Relevant to Health Maintenance Insurance COUNT INCLUDES THE [facility] [id number] [employer] OPEN ACCESS COUNT INCLUDES THE [facility] [id number] Care Teams Rag Room Supervisor Relationship Specialty Start Date End Date Kenya Yung NP [address] [place] [address] PCP - General Cardiovascular Disease 10/05/24 Mikayla Billy MD Medical Oncologist/Fluxer Hematology 08/28/22
--- OUTSIDE RECORDS SUMMARY | 2025-06-15 08:16 | XMS_ITS | Referral Summary ---
Author Organization [facility] Address [address] [place] [address] Care Team Providers Care Structural Welder Name Role Phone Mikayla Billy MD Unavailable [phone] Kenya Yung NP Primary Care Provider [phone] Encounters Date Type Department Care Team Description 05/20/2025 Orders Only [facility] Oncology [address] [place] [phone] Provider, MD Angel 05/14/2025 3:15 PM CDT Office Visit [facility] at [address] [phone] Alysia Arenas NP Cellulitis of left buttock (Primary Dx) from Last 3 Months Allergies Active Allergy Reactions Criticality Noted Date [...] remission 10/17/2011 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 Immunizations Immunization Administration Dates Next Due Influenza, Quadrivalent, Marina l Culture-based MDCK, Preservative Free, Antibiotic Free, Intramuscular 09/19/2020,09/11/2019 Influenza, Unspecified 09/05/2021 Mickey (J&J) SARS-CoV-2 Vaccination 02/13/2021 Moderna SARS-CoV-2 Monovalent Vaccination (12+ Y RS) 09/22/2021 Pneumococcal Conjugate PCV 13 10/13/2021 ZOSTER Recombinant 12/14/2019,09/11/2019 Social History Tobacco Use Types Packs/Day Years [...] on file Legal Sex Male 8:01 PM CONTRACT ADMINISTRATIVE ASSISTANT Gender Identity Male 11/09/2020 1:13 PM CONTRACT ADMINISTRATIVE ASSISTANT Sexual Orientation Straight 11/09/2020 1: 13 PM CONTRACT ADMINISTRATIVE ASSISTANT Last Filed Vital Signs Vital Sign Reading [...] 03/19/2024 12:04 PM CDT Plan of Treatment Not on file Procedures Procedure Name Priority Date/Time Associated Diagnosis Comments CBC WITH AUTO DIFFERENTIAL Routine 05/14/2025 9:[address] ABDOMEN PELVIS W CONTRAST Schedule Routine, Read Routine (OP Routine) 01/15/2024 9:59 AM CONTRACT ADMINISTRATIVE ASSISTANT from Last 3 Months or Most Recently Relevant to Health Maintenance Results * CBC with auto differential (05/14/2025 9:12 AM CDT) Blood Historical Provider LAB BLOOD ORDERABLES Katiuska jordan Result EXTERNAL LAB * CT Abdomen Pelvis W Contrast (01/15/2024 9:59 AM CONTRACT ADMINISTRATIVE ASSISTANT) Anatomical Region Laterality Modality Body N/A Computed Tomogra phy us Historical Provider MD YUEN CT PROCEDURES Final R esult from Last 3 Months or Most Recently Relevant to Health Maintenance Insurance [facility] [id number] [employer] OPEN ACCESS [facility]MER[facility] [id number] Care Teams Structural Welder Relationship Specialty Start Date End Date Kenya Yung NP [address] [place] [address] PCP - General Cardiovascular Disease 10/05/24 Mikayla Billy MD Medical Oncologist/Cod Clerk Hematology 08/28/22
[2025-06-15 19:00] LABS: Hematocrit 50.4 % (42.0-52.0); Hemoglobin 16.4 g/dL (14.0-18.0); Immature Granulocyte Percent A 0.3 % (0-0.5); Lymphocytes Absolute Auto 0.83 K/mm3 (0.9-3.2); Mean Corpuscular HGB Conc 32.5 g/dl (32-36); Mean Corpuscular Hemoglobin 30.6 pg (26-34); Mean Corpuscular Volume 94.0 fl (80-100); Nucleated Red Blood Cells Absolute Auto 0.000 K/mm3 (0.0-0.012); Nucleated Red Blood Cells Perc 0.0 % (0.0-0.2); Platelet Count Result 210 k/mm3 (150-375); Red Blood Count 5.36 M/mm3 (4.6-6.20); White Blood Count 7.3 K/mm3 (4.5-10.0)
== END 2025-06-15 08:14 | disposition home or self-care (01) ==
LOC: ANHGOSHLAB 08:14
PROVIDERS: PCP Internal Medicine; Visit Provider Clinical Nurse Specialist
DX: R79.89 Other specified abnormal findings of blood chemistry (principal)
CPT/HCPCS: 36415; 85025